=== PATIENT | female | born 1965 | race Two or more races ===

== ENCOUNTER 2022-09-29 13:55 | Outpatient (CLI) | payer OTHER ==
[2022-09-29] MEDS ORDERED: NIFEDIPINE ER30 M1 PO (15:13)
== END 2022-09-29 15:44 | disposition home or self-care (01) ==
LOC: PRENATAL 13:55
PROVIDERS: ATTEND Obstetrics & Gynecology Maternal & Fetal Medicine
DX: Z76.1 Encounter for health supervision and care of foundling (principal)